=== PATIENT | male | born 1980 | race Caucasian/White ===

== ENCOUNTER 2023-12-09 14:20 | Inpatient (IN) | payer OTHER ==
[~2023-12-09] VITALS: Ht 167.6 cm; Wt 80.0 kg
[2023-12-09 15:43] LABS: BASOPHILS % (AUTO) 0.9 % (0.0-2.0); EOSINOPHILS % (AUTO) 3.9 % (1.0-6.0); HEMATOCRIT 33.1 % (41-53); HEMOGLOBIN 11.1 g/dL (13.5-17.5); LYMPHOCYTES # (AUTO) 0.9 K/uL (1.0-4.8); LYMPHOCYTES % (AUTO) 21.3 % (22.0-44.0); MEAN CORPUSCULAR HEMOGLOBIN 32.3 pg (26.0-34.0); MEAN CORPUSCULAR HGB CONC 33.6 G/dL (31.0-37.0); MEAN CORPUSCULAR VOLUME 96 fL (80-100); MONOCYTES # (AUTO) 0.4 K/uL (0.1-1.0); MONOCYTES % (AUTO) 8.7 % (2.0-9.0); NEUTROPHILS # (AUTO) 2.6 K/uL (1.8-7.7); NEUTROPHILS % (AUTO) 65.2 % (40.0-70.0); RED BLOOD CELL COUNT(AUTO) 3.45 MIL/uL (4.50-5.90); RED CELL DISTRIBUTION WIDTH 15.8 % (11.5-14.5)
[2023-12-09 15:54] LABS: ANION GAP 11 mmol/L (8-16); CARBON DIOXIDE 22 mmol/L (22-29); CHLORIDE 105 mmol/L (98-107); CREATININE 0.61 mg/dL (0.60-1.30); GLOMERULAR FILTR. RATE CALC > 60 mL/min (>60); GLUCOSE,RANDOM 93 mg/dL (70-110); POTASSIUM 4.2 mmol/L (3.5-5.1); SODIUM SERUM 138 mmol/L (136-145); UREA NITROGEN, BLOOD 10 mg/dL (7-18)
[2023-12-09 16:00] LABS: ALANINE AMINOTRANSFERASE 28 U/L (12-78); ALBUMIN 2.6 g/dL (3.4-5.0); ALKALINE PHOSPHATASE 161 U/L (46-116); ASPARTATE AMINOTRANSFERASE 46 U/L (15-37); TOTAL PROTEIN, SERUM 6.5 g/dL (6.4-8.2)
[2023-12-09 16:31] LABS: PLATELET COUNT (AUTO) 89 K/uL (150-450)
[2023-12-09 16:56] LABS: LACTIC ACID 1.2 mmol/L (0.4-2.0)
[2023-12-09 17:01] LABS: C-REACTIVE PROTEIN QUANT 2.27 mg/dL (0.00-0.30)
[2023-12-09] MEDS: KETOROLAC TROMETHAMINE 30 MG/ML VIAL IVP ONE (18:52)
[2023-12-09] MEDS: VANCOMYCIN 1GM/WATER(PEG/NADA) 200 ML IV ONE (19:00)
[2023-12-09] MEDS ORDERED: MORPHINE SULFATE 2 MG/ML SYRINGE IVP PRN (22:15)
[2023-12-09] MEDS ORDERED: ZOLPIDEM TARTRATE 5 MG TABLET PO PRN (22:15)
[2023-12-09] MEDS ORDERED: HYDROCODONE/ACETAMINOPHEN 5-325 MG TABLET PO PRN (22:15)
[2023-12-09] MEDS ORDERED: OxyCODONE HCL/ACETAMINOPHEN 5-325 MG TABLET PO PRN (22:15)
[2023-12-09] MEDS ORDERED: METR500 PO (22:38)
[2023-12-09] MEDS ORDERED: DULO-114 PO (22:38)
[2023-12-09] MEDS ORDERED: ACET-3385 PO (22:38)
[2023-12-09] MEDS ORDERED: FURO20 PO (22:38)
[2023-12-09] MEDS ORDERED: NADO20 PO (22:38)
[2023-12-09] MEDS: VANCOMYCIN 500 MG/WATER(PEG) 100 ML IV ONE (23:30)
[2023-12-10] MEDS: HEPARIN SODIUM,PORCINE 5,000 UNITS/ML VIAL SQ SCH (00:18)
[2023-12-10 00:25] VITALS: BP 116/66; PULSE 69; RESP 18; TEMP 98.3; O2SAT 96
[2023-12-10 04:55] VITALS: BP 101/60; PULSE 75; RESP 18; TEMP 98.4; O2SAT 96
[2023-12-10 07:04] LABS: APPEARANCE,URINE CLEAR (CLEAR); COLOR,URINE DARK YELLOW (YELLOW); GLUCOSE, URINE (UA) NEGATIVE (NEGATIVE); KETONES,URINE NEGATIVE (NEGATIVE); LEUKOCYTE ESTERASE ,URINE NEGATIVE (NEGATIVE); NITRATE,URINE NEGATIVE (NEGATIVE); OCCULT BLOOD,URINE TRACE (NEGATIVE); PROTEIN,URINE 30-70 mg/dL (NEGATIVE); SPECIFIC GRAVITIY, URINE 1.043 (1.003-1.030)
[2023-12-10 07:05] LABS: BILIRUBIN,URINE SMALL (NEGATIVE)
[2023-12-10 07:06] LABS: ANION GAP 7 mmol/L (8-16); CALCIUM, TOTAL 7.7 mg/dL (8.8-10.5); CARBON DIOXIDE 24 mmol/L (22-29); CHLORIDE 108 mmol/L (98-107); CREATININE 0.73 mg/dL (0.60-1.30); GLOMERULAR FILTR. RATE CALC > 60 mL/min (>60); GLUCOSE,RANDOM 108 mg/dL (70-110); POTASSIUM 4.5 mmol/L (3.5-5.1); SODIUM SERUM 139 mmol/L (136-145); UREA NITROGEN, BLOOD 12 mg/dL (7-18)
[2023-12-10 07:38] LABS: CALCIUM OXALATE CRYSTALS,UR Many /LPF (None Seen)
[2023-12-10 07:39] LABS: RBC,URINE 0-2 /HPF (0-2); WBC,URINE 0-2 /HPF (0-5)
[2023-12-10 07:40] LABS: BACTERIA,URINE None Seen /HPF (None Seen)
[2023-12-10] MEDS: PANTOPRAZOLE SODIUM 40 MG DR TABLET PO SCH (08:52)
[2023-12-10] MEDS: VANCOMYCIN 1.25 GM/WATER(PEG) 250 ML IV SCH (08:52)
[2023-12-10 09:43] VITALS: BP 106/61; PULSE 78; RESP 18; TEMP 98.7; O2SAT 97
[2023-12-10 15:52] LABS: BASOPHILS % (AUTO) 0.1 % (0.0-2.0); HEMATOCRIT 30.7 % (41-53); HEMOGLOBIN 10.2 g/dL (13.5-17.5); LYMPHOCYTES # (AUTO) 0.9 K/uL (1.0-4.8); LYMPHOCYTES % (AUTO) 26.3 % (22.0-44.0); MEAN CORPUSCULAR HEMOGLOBIN 32.5 pg (26.0-34.0); MEAN CORPUSCULAR HGB CONC 33.3 G/dL (31.0-37.0); MEAN CORPUSCULAR VOLUME 97 fL (80-100); MONOCYTES # (AUTO) 0.3 K/uL (0.1-1.0); MONOCYTES % (AUTO) 8.6 % (2.0-9.0); NEUTROPHILS # (AUTO) 2.1 K/uL (1.8-7.7); PLATELET COUNT (AUTO) 84 K/uL (150-450); RED BLOOD CELL COUNT(AUTO) 3.16 MIL/uL (4.50-5.90); RED CELL DISTRIBUTION WIDTH 16.2 % (11.5-14.5); WHITE BLOOD COUNT (AUTO) 3.4 K/uL (4.5-11.0)
[2023-12-10 16:33] LABS: RBC MORPHOLOGY COMMENT ABNORMAL RBC MORPH
[2023-12-10] MEDS ORDERED: IOHEXOL 350 MG/ML 100 ML VIAL ONE (16:51)
[2023-12-10] MEDS ORDERED: 0.9% SODIUM CHLORIDE 10 ML SYRINGE IVP ONE (16:51)
[2023-12-10] MEDS ORDERED: SODIUM CHLORIDE 0.9% 100 ML ONE (16:51)
[2023-12-10 19:44] VITALS: BP 121/67; PULSE 80; RESP 18; TEMP 98.2; O2SAT 97
[2023-12-11 05:57] VITALS: BP 109/54; PULSE 70; RESP 18; TEMP 97.6; O2SAT 98
[2023-12-11 07:38] VITALS: BP 110/59; PULSE 67; RESP 18; TEMP 98.2; O2SAT 98
[2023-12-11 08:10] LABS: ANION GAP 7 mmol/L (8-16); CALCIUM, TOTAL 7.8 mg/dL (8.8-10.5); CARBON DIOXIDE 25 mmol/L (22-29); CHLORIDE 106 mmol/L (98-107); CREATININE 0.67 mg/dL (0.60-1.30); GLOMERULAR FILTR. RATE CALC > 60 mL/min (>60); GLUCOSE,RANDOM 79 mg/dL (70-110); POTASSIUM 4.3 mmol/L (3.5-5.1); SODIUM SERUM 138 mmol/L (136-145); UREA NITROGEN, BLOOD 8 mg/dL (7-18); VANCOMYCIN,RANDOM 18.5 mcg/mL (25.0-50.0)
[2023-12-11] MEDS ORDERED: GADOTERATE MEGLUMINE 10 MMOL/20 ML VIAL IVP ONE (14:18)
[2023-12-11 19:45] VITALS: BP 111/55; PULSE 73; RESP 18; TEMP 98.4; O2SAT 96
[2023-12-12 05:23] VITALS: BP 109/64; PULSE 66; RESP 18; TEMP 97.6; O2SAT 96
[2023-12-12 07:51] LABS: BASOPHILS % (AUTO) 1.2 % (0.0-2.0); EOSINOPHILS % (AUTO) 10.8 % (1.0-6.0); HEMATOCRIT 31.6 % (41-53); HEMOGLOBIN 10.8 g/dL (13.5-17.5); LYMPHOCYTES # (AUTO) 0.9 K/uL (1.0-4.8); LYMPHOCYTES % (AUTO) 23.2 % (22.0-44.0); MEAN CORPUSCULAR HEMOGLOBIN 32.6 pg (26.0-34.0); MEAN CORPUSCULAR HGB CONC 34.3 G/dL (31.0-37.0); MEAN CORPUSCULAR VOLUME 95 fL (80-100); MONOCYTES # (AUTO) 0.3 K/uL (0.1-1.0); MONOCYTES % (AUTO) 8.9 % (2.0-9.0); NEUTROPHILS # (AUTO) 2.1 K/uL (1.8-7.7); NEUTROPHILS % (AUTO) 55.9 % (40.0-70.0); PLATELET COUNT (AUTO) 82 K/uL (150-450); RED BLOOD CELL COUNT(AUTO) 3.32 MIL/uL (4.50-5.90); RED CELL DISTRIBUTION WIDTH 15.6 % (11.5-14.5); WHITE BLOOD COUNT (AUTO) 3.7 K/uL (4.5-11.0)
[2023-12-12 07:54] LABS: ALANINE AMINOTRANSFERASE 31 U/L (12-78); ALBUMIN 2.1 g/dL (3.4-5.0); ALKALINE PHOSPHATASE 134 U/L (46-116); ANION GAP 9 mmol/L (8-16); ASPARTATE AMINOTRANSFERASE 43 U/L (15-37); BILIRUBIN,TOTAL 2.7 mg/dL (0.1-1.0); CALCIUM, TOTAL 7.9 mg/dL (8.8-10.5); CARBON DIOXIDE 22 mmol/L (22-29); CHLORIDE 105 mmol/L (98-107); CREATININE 0.66 mg/dL (0.60-1.30); GLOMERULAR FILTR. RATE CALC > 60 mL/min (>60); GLUCOSE,RANDOM 83 mg/dL (70-110); POTASSIUM 4.1 mmol/L (3.5-5.1); SODIUM SERUM 136 mmol/L (136-145); TOTAL PROTEIN, SERUM 5.7 g/dL (6.4-8.2); UREA NITROGEN, BLOOD 7 mg/dL (7-18)
[2023-12-12 07:57] VITALS: BP 108/58; PULSE 65; RESP 18; TEMP 98.3; O2SAT 97
[2023-12-12] MEDS ORDERED: DICL100G60 TP (10:38)
[2023-12-12] MEDS ORDERED: doxycycline PO (10:38)
[2023-12-12] MEDS ORDERED: tyle PO (10:38)
[2023-12-12] MEDS ORDERED: TYLENOL PO (10:57)
[2023-12-12] MEDS ORDERED: DICLOFENAC SODIUM 1% 100 GM GEL [4GM] TP SCH (21:00)
== END 2023-12-12 14:45 | DRG 917 ==
LOC: EMS 14:37 → UNDOADMIN 22:07 → EDH 22:07 → 6S 12-10
PROVIDERS: ADMIT Hospitalist; ATTEND Hospitalist
DX: T63.301A Toxic effect of unspecified spider venom, accidental (unintentional), initial encounter (principal); E43 Unspecified severe protein-calorie malnutrition; L03.116 Cellulitis of left lower limb; D61.818 Other pancytopenia; K76.6 Portal hypertension; K74.60 Unspecified cirrhosis of liver; Z68.28 Body mass index [BMI] 28.0-28.9, adult; Y93.89 Activity, other specified; Y92.89 Other specified places as the place of occurrence of the external cause; Y99.8 Other external cause status
CPT/HCPCS: 73701; 73722; 80048; 80053; 80076; 80202; 81001; 83605; 84145; 85025; 86140; 87040; 93971; 99285; G0378; J1644; J1885; J7050